=== PATIENT | female | born 1935 | race Caucasian/White ===

== ENCOUNTER 2017-06-13 11:36 | Inpatient (IN) | payer OTHER, BC ==
[2017-06-13] MEDS ORDERED: SODIUM CHLORIDE 1,000 ML IV STA (12:47)
[2017-06-13] MEDS ORDERED: MAGNESIUM SULF 50% (8.12 MEQ/2 ML-1 GM VIAL) IVPB ONE ×2 (13:22→14:00)
[2017-06-13 13:25] LABS: BASO % 0.1 % (0-2.0); HEMATOCRIT 43.7 % (32.4-45.2); HEMOGLOBIN 14.2 GM/dL (10.7-15.3); MCH 28.2 pg (25.7-33.7); MCHC 32.5 g/dl (32.0-36.0); MEAN CELL VOLUME 86.8 fl (80-96); MEAN PLT VOLUME 9.3 fl (7.5-11.1); MONO % 9.1 % (3.8-10.2); NEUT % 80.8 % (42.8-82.8); PLATELET COUNT 203 K/MM3 (134-434); RBC 5.03 M/mm3 (3.60-5.2); RDW 14.4 % (11.6-15.6); WHITE BLOOD COUNT 8.5 K/mm3 (4.0-10.0)
--- NOTE | 2017-06-13 13:26 | PDOC ---
History of Present Illness - General History Source: Patient, Family, Old Records Exam Limitations: No Limitations <Troy Palumbo - Last Filed: 06/13/17 15:41> - General History Source: Patient, Family Exam Limitations: No Limitations - History of Present Illness Initial Comments: 06/13/17 14:16 The patient is a 81 year old female, with a significant past medical history of HTN, hyperlipidemia, DM, and dementia, who presents to the emergency department , s/p fall generalized weakness beginning in March and worsening. As per patients daughter, she was found on the floor this morning. She does not remember how she fell. She reports to have been on the floor for approximately 20 minutes. She denies loss of consciousness. Her daughter reports she becomes winded easily. She went to urgent care in March and was told she has a low heart rate. Patients daughter reports yesterday she became weight, and was hard to move. She reports 4 episodes of nonbloody, nonbilious emesis yesterday. As per daughter, she has bilateral lower extremity edema. She reports a decreased oral intake and has lost approximately 13 lbs since September. She denies recent fevers, chills, headache or dizziness. She denies recent diarrhea or constipation. She denies recent dysuria, frequency, urgency or hematuria. She denies recent chest pain or shortness of breath. Allergies: NKA Past surgical history: None reported. Social history: Nonsmoker. Denies EtOH use and recreational drug use. <Jeff Christianson - Last Filed: 06/13/17 16:11> - General Chief Complaint: Lightheaded Stated Complaint: Weakness Time Seen by Provider: 06/13/17 12:10 Past History - Suicide/Smoking/Psychosocial Hx Smoking History: Never smoked Hx Alcohol Use: No Drug/Substance Use Hx: No <Troy Palumbo - Last Filed: 06/13/17 15:41> <Jeff Christianson - Last Filed: 06/13/17 16:11> - Past Medical History Allergies/Adverse Reactions: Allergies Allergy/AdvReac Type Severity Reaction Status Date / Time No Known Allergies Allergy Verified 06/13/17 12:57 Review of Systems - Review of Systems Able to Perform ROS?: Yes Comments:: 06/13/17 14:17 GENERAL/CONSTITUTIONAL: +Generalized weakness. No fever or chills. HEAD, EYES, EARS, NOSE AND THROAT: No change in vision. No ear pain or discharge. No sore throat. CARDIOVASCULAR: No chest pain or shortness of breath. RESPIRATORY: No cough, wheezing, or hemoptysis. GASTROINTESTINAL: +Emesis. No nausea, diarrhea or constipation. GENITOURINARY: No dysuria, frequency, or change in urination. MUSCULOSKELETAL: No joint or muscle swelling or pain. No neck or back pain. EXTREMITIES: +Bilateral lower extremity edema. SKIN: No rash NEUROLOGIC: No headache, vertigo, loss of consciousness, or change in strength/ sensation. ENDOCRINE: No increased thirst. No abnormal weight change. HEMATOLOGIC/LYMPHATIC: No anemia, easy bleeding, or history of blood clots. ALLERGIC/IMMUNOLOGIC: No hives or skin allergy. All Other Systems: Reviewed and Negative <Jeff Christianson - Last Filed: 06/13/17 16:11> *Physical Exam - Vital Signs Last Vital Signs Temp Pulse Resp BP Pulse Ox 98.8 F 111 H 19 92/61 100 06/13/17 12:08 06/13/17 12:08 06/13/17 12:08 06/13/17 12:08 06/13/17 12:08 <Troy Palumbo - Last Filed: 06/13/17 15:41> - Vital Signs Last Vital Signs Temp Pulse Resp BP Pulse Ox 98.8 F 111 H 19 92/61 100 06/13/17 12:08 06/13/17 12:08 06/13/17 12:08 06/13/17 12:08 06/13/17 12:08 - Physical Exam Comments: 06/13/17 16:05 GENERAL: Awake, alert, and fully oriented, in no acute distress HEAD: No signs of trauma EYES: PERRLA, EOMI, sclera anicteric, conjunctiva clear ENT: +Dry mucous membranes. Auricles normal inspection, hearing grossly normal, nares patent, oropharynx clear without exudates. NECK: Normal ROM, supple, no lymphadenopathy, JVD, or masses LUNGS: Breath sounds equal, clear to auscultation bilaterally. No wheezes, and no crackles HEART: Regular rate and rhythm, normal S1 and S2, no murmurs, rubs or gallops ABDOMEN: Soft, nontender, normoactive bowel sounds. No guarding, no rebound. No masses EXTREMITIES: +Trace bilateral edema of the lower extremities. Normal range of motion. No clubbing or cyanosis. No cords, erythema, or tenderness NEUROLOGICAL: Cranial nerves II through XII grossly intact. Normal speech, normal gait SKIN: Warm, Dry, normal turgor, no rashes or lesions noted. <Jeff Christianson - Last Filed: 06/13/17 16:11> Heart Score/ECG Review #1 ECG reviewed & interpreted by me at: 12:10 06/13/17 13:22 accelerated junctional rhythm 100, LAFB, QTC 688 msec, no std/martha, TWI I, avL, poor R wave progression <Troy Palumbo - Last Filed: 06/13/17 15:41> ED Treatment Course - LABORATORY CBC & Chemistry Diagram: 06/13/17 13:15 06/13/17 13:15 - RADIOLOGY Radiology Studies Ordered: Category Date Time Status HEAD CT WITHOUT CONTRAST [CT] Stat CT Scan 06/13/17 13:10 Ordered CHEST X-RAY PORTABLE* [RAD] Stat Radiology 06/13/17 12:47 Completed <Troy Palumbo - Last Filed: 06/13/17 15:41> - LABORATORY CBC & Chemistry Diagram: 06/13/17 13:15 06/13/17 13:15 - ADDITIONAL ORDERS Additional order review: Laboratory Results 06/13/17 06/13/17 06/13/17 13:41 13:15 13:15 PT with INR INR PTT (Actin FS) VBG pH 7.34 POC VBG pCO2 45.2 POC VBG pO2 27.1 L Mixed VBG HCO3 24.2 Sodium 137 Potassium 4.4 Chloride 100 Carbon Dioxide 24 Anion Gap 13 BUN 51 H Creatinine 2.4 H Creat Clearance w eGFR 19.47 Random Glucose 319 H* Lactic Acid 5.3 H* Calcium 8.3 L Phosphorus 5.4 H Magnesium 1.8 Total Bilirubin 0.3 AST 23 ALT 26 Alkaline Phosphatase 52 Creatine Kinase 45 Troponin I < 0.02 B-Natriuretic Peptide 1375.99 H Total Protein 5.9 L Albumin 3.1 L Lipase 61 L TSH 0.52 06/13/17 13:15 PT with INR 11.60 INR 1.03 PTT (Actin FS) 24.8 L VBG pH POC VBG pCO2 POC VBG pO2 Mixed VBG HCO3 Sodium Potassium Chloride Carbon Dioxide Anion Gap BUN Creatinine Creat Clearance w eGFR Random Glucose Lactic Acid Calcium Phosphorus Magnesium Total Bilirubin AST ALT Alkaline Phosphatase Creatine Kinase Troponin I B-Natriuretic Peptide Total Protein Albumin Lipase TSH 06/13/17 13:15 RBC 5.03 MCV 86.8 MCHC 32.5 RDW 14.4 MPV 9.3 Neutrophils % 80.8 Lymphocytes % 10.0 Monocytes % 9.1 Eosinophils % 0.0 Basophils % 0.1 <Jeff Christianson - Last Filed: 06/13/17 16:11> Medical Decision Making - Medical Decision Making 06/13/17 13:23 A portion of this note was documented by scribe services under my direction. I have reviewed the details of the note, within reason, and agree with the documentation with the following case summary and management plan written by me. Patient treated in the ED. Nursing notes are reviewed and incorporated into the medical decision-making. Vital signs reviewed. Peripheral IV access obtained by the nurse, laboratory studies are drawn and sent, reviewed and interpreted by myself. Vital Signs Temp Pulse Resp BP Pulse Ox 98.8 F 111 H 19 92/61 100 06/13/17 12:08 06/13/17 12:08 06/13/17 12:08 06/13/17 12:08 06/13/17 12:08 81-year-old female with past medical history of hypertension, diabetes, hyperlipidemia presents with generalized weakness. The patient has overall been having failure to thrive since March 2017. She has sustained approximately 10 -15 pound weight loss. Stated that she's been generally more fatigued and weak but without focal symptoms. Noted yesterday that she was having several episodes of nonbloody, nonbilious vomiting and feeling increasingly jelly weak but denies any pain. Denies fevers, chills, cough, diarrhea. This morning, the patient's daughter reported that the patient found her laying on the ground. The patient reported she felt weak and denies hitting her head. Denies headache or neck pain at this time. Denies any focal neurological deficits. The patient did talk to her doctor about these failure thrive symptoms. She is due to follow -up with a neurologist but has not seen them yet. Denies prior cardiac history. Denies rectal bleeding. Denies recent colonoscopy. It is unclear what the etiology of the patient's overall failure to thrive is covering from. However, the patient is likely dehydrated and will require IV fluids. Patient is noted to be somewhat hypotensive and tachycardic, sepsis is within the differential. We'll also rule out rhabdomyolysis. We'll obtain a cardiac, metabolic and infectious workup. We'll also obtain a head CT given that she was found on the ground. Patient is generally weak and unable to ambulate, so we will admit the patient to the hospital for further evaluation. 06/13/17 15:42 CBC, BMP 06/13/17 13:15 06/13/17 13:15 CMP Sodium 137 mmol/L (136-145) 06/13/17 13:15 Potassium 4.4 mmol/L (3.5-5.1) 06/13/17 13:15 Chloride 100 mmol/L (98-107) 06/13/17 13:15 Carbon Dioxide 24 mmol/L (21-32) 06/13/17 13:15 Anion Gap 13 (8-16) 06/13/17 13:15 BUN 51 mg/dL (7-18) H 06/13/17 13:15 Creatinine 2.4 mg/dL (0.55-1.02) H 06/13/17 13:15 Creat Clearance w eGFR 19.47 (>60) 06/13/17 13:15 Random Glucose 319 mg/dL (74-106) H* 06/13/17 13:15 Lactic Acid 5.3 mmol/L (0.0-2.0) H* 06/13/17 13:41 Calcium 8.3 mg/dL (8.5-10.1) L 06/13/17 13:15 Phosphorus 5.4 mg/dL (2.5-4.9) H 06/13/17 13:15 Magnesium 1.8 mg/dL (1.8-2.4) 06/13/17 13:15 Total Bilirubin 0.3 mg/dL (0.2-1.0) 06/13/17 13:15 AST 23 U/L (15-37) 06/13/17 13:15 ALT 26 U/L (12-78) 06/13/17 13:15 Alkaline Phosphatase 52 U/L (45-117) 06/13/17 13:15 Creatine Kinase 45 IU/L (26-192) 06/13/17 13:15 Troponin I < 0.02 ng/ml (0.00-0.05) 06/13/17 13:15 B-Natriuretic Peptide 1375.99 pg/ml (5-450) H 06/13/17 13:15 Total Protein 5.9 g/dl (6.4-8.2) L 06/13/17 13:15 Albumin 3.1 g/dl (3.4-5.0) L 06/13/17 13:15 Lipase 61 U/L (73-393) L 06/13/17 13:15 TSH 0.52 uIU/ml (0.358-3.74) 06/13/17 13:15 CT head reviewed. No acute findings. Chest xray reviewed. NO acute findings. UA pending. Given the prolonged QTC, 2 g of IV magnesium was ordered empirically. Patient noted have an elevated lactic acidosis. Empiric antibiotics medical mice and Zosyn was ordered. Care must be taken to avoid any agents that could prolonged QTC. Could the patient had fall out of bed because of the prolonged QT? However , given the circumstances of acute renal failure, lactic acidosis, we'll need to admit the patient to the hospital. [employer] discussed with the patient and the patient's daughter. [facility] discussed [facility] who accepts the patient for telemetry admission. Case discussed in detail with admitting physician including history, physical exam and ancillary studies. Admitting physician has assumed care for the patient, will follow all pending diagnostics and will complete the evaluation and treatment. <Troy Palumbo - Last Filed: 06/13/17 15:41> - Medical Decision Making 06/13/17 3:30pm Call placed to Dr. Goran Ocampo's answering service, awaiting call back. 4:10pm Second call placed to Dr. Goran Ocampo's answering service, awaiting call back. <Jeff Christianson - Last Filed: 06/13/17 16:11> *DC/Admit/Observation/Transfer - Discharge Dispostion Admit: Yes <Troy Palumbo - Last Filed: 06/13/17 15:41> - Attestations Scribe Attestion: 06/13/17 14:17 Documentation prepared by Jeff Christianson, acting as director medical economics for Troy Palumbo MD. <Jeff Christianson - Last Filed: 06/13/17 16:11> Diagnosis at time of Disposition: Lactic acidosis, Prolonged QT interval Acute renal failure Qualifiers: Acute renal failure type: unspecified Qualified Code(s): N17.9 - Acute kidney failure, unspecified - Discharge Dispostion Condition at time of disposition: Stable - Referrals Referrals: STAFF,NOT ON [Primary Care Provider] -
[2017-06-13 13:34] LABS: VENOUS PC02 45.2 mmHg (38-52); VENOUS PH 7.34 (7.32-7.42); VENOUS PO2 27.1 mmHg (28-48)
[2017-06-13 13:53] LABS: ALBUMIN 3.1 g/dl (3.4-5.0); ANION GAP 13 (8-16); BILIRUBIN,TOTAL 0.3 mg/dL (0.2-1.0); BLOOD UREA NITROGEN 51 mg/dL (7-18); CALCIUM 8.3 mg/dL (8.5-10.1); CHLORIDE 100 mmol/L (98-107); CO2 24 mmol/L (21-32); CREATININE 2.4 mg/dL (0.55-1.02); INR 1.03 (0.82-1.09); LIPASE 61 U/L (73-393); MAGNESIUM 1.8 mg/dL (1.8-2.4); PHOSPHOROUS 5.4 mg/dL (2.5-4.9); POTASSIUM 4.4 mmol/L (3.5-5.1); PROTHROMBIN TIME (PATIENT) 11.6 SEC (9.98-11.88); SGOT/AST 23 U/L (15-37); SGPT/ALT 26 U/L (12-78); SODIUM 137 mmol/L (136-145); TOT PROT 5.9 g/dl (6.4-8.2)
[2017-06-13 13:55] LABS: ACTIVATED PTT 24.8 SECONDS (26.9-34.4); GLUCOSE,RANDOM 319 mg/dL (74-106)
[2017-06-13 14:00] LABS: ALK PHOS 52 U/L (45-117); N-TERMINAL BNP 1375.99 pg/ml (5-450)
[2017-06-13] MEDS ORDERED: VANCOMYCIN 1,000 MG in DEXTROSE 5%-WATER - 250 ML IVPB ONE (14:07)
[2017-06-13] MEDS ORDERED: PIPERACIL/TAZOB 3.375 GM 3.375 GM/50 ML PREMIX IVPB ONE (14:07)
[2017-06-13] MEDS ORDERED: MAGNESIUM SULF 50% (8.12 MEQ/2 ML-1 GM VIAL) ONE ×2 (14:38→14:40)
[2017-06-13] MEDS ORDERED: VANCOMYCIN 1 GRAM (PRE-DOCKED) 1,000 MG/250 ML BAG IVPB ONE (14:39)
[2017-06-13] MEDS ORDERED: SODIUM CHLORIDE 1,000 ML IV SCH (15:45)
[2017-06-13] MEDS: SODIUM CHLORIDE 1,000 ML IV SCH (16:30)
[2017-06-13] MEDS ORDERED: ACETAMINOPHEN 325 MG TABLET (FP) PO ONE (16:52)
--- NOTE | 2017-06-13 16:52 | HP ---
CHIEF COMPLAINT: Weakness, s/p unwitnessed fall. PCP: Dr. Leiva ( [place]) Neurologist Dr. Boswell HISTORY OF PRESENT ILLNESS: The patient is a 81 year old female, with a significant past medical history of HTN, hyperlipidemia, DM, and dementia, who presents to the emergency department complaining of worsening generalized weakness since Mar 2017,s/p fall, found pt on the floor next to the bed by her daughter a Denies loss of consciousness, head trauma or any injuries, non -focal changes. Noted yesterday that she was having several episodes of non-bloody, non-bilious vomiting and feeling increasingly jelly weak but denies any pain. Pt denies recent fevers, chills, headache,dizziness, dysuria, frequency, urgency or hematuria.Pt was seen by urgent care doctor in 2016 due tot weakness,at that time stopped Atenolol due to bradycardia. Referred to neurologist for the weakness,seen by neurologist Dr. Boswell in and w/u in progress. Pt mainly lives with his son in [place] and stay with her daughter on weekends. Daughter reports decreased oral intake and has lost approximately 10-15 pound weight loss since September/2016. Allergies: NKA Past surgical history: None reported. Social history: Nonsmoker. Denies EtOH use and recreational drug use. ER course was notable for: (1)EKG: accelerated junctional rhythm 100, LAFB, QTC 688 msec, no std/martha, TWI I , avL, poor R wave progression (2) Lactic acid 5.3 (3) Bun 51,cre, 2.4, BNP 1375, BS 319 (4) Temp 101 Recent Travel:No PAST MEDICAL HISTORY: HTN, hyperlipidemia, DM, and dementia PAST SURGICAL HISTORY: Bladder lifting Social History: Smoking:No Alcohol:No Drugs: No Family History: Father of MS Mother : HTN Sister of bone cancer at age 50's Allergies No Known Allergies Allergy (Verified 06/13/17 12:57) HOME MEDICATIONS: Reviewed REVIEW OF SYSTEMS CONSTITUTIONAL: Positive fever, generalized weakness, malaise, loss of appetite, weight change Absent: chills, diaphoresis, HEENT: Absent: rhinorrhea, nasal congestion, throat pain, throat swelling, difficulty swallowing, mouth swelling, ear pain, eye pain, visual changes CARDIOVASCULAR: Absent: chest pain, syncope, palpitations, irregular heart rate, lightheadedness , peripheral edema RESPIRATORY: Absent: cough, shortness of breath, dyspnea with exertion, orthopnea, wheezing, stridor, hemoptysis GASTROINTESTINAL:abdominal pain, intermittent nausea,vomiting last night no abdominal distension, diarrhea, no constipation, melena or hematochezia GENITOURINARY: Absent: dysuria, frequency, urgency, hesitancy, hematuria, flank pain, genital pain MUSCULOSKELETAL: Generalized weakness Absent: myalgia, arthralgia, joint swelling, back pain, neck pain SKIN: Absent: rash, itching, pallor HEMATOLOGIC/IMMUNOLOGIC: Absent: easy bleeding, easy bruising, lymphadenopathy, frequent infections ENDOCRINE: Absent: unexplained weight loss, heat intolerance, cold intolerance NEUROLOGIC: Absent: headache, focal weakness or paresthesias, dizziness, unsteady gait, seizure, mental status changes, bladder or bowel incontinence PSYCHIATRIC: Absent: anxiety, depression, suicidal or homicidal ideation, hallucinations. PHYSICAL EXAMINATION Vital Signs - 24 hr 06/13/17 12:08 Temperature 98.8 F Pulse Rate 111 H Respiratory 19 Rate Blood Pressure 92/61 O2 Sat by Pulse 100 Oximetry (%) GENERAL: Awake, alert, and fully oriented, in no acute distress. HEAD: Normal with no signs of trauma. EYES: Pupils equal, round and reactive to light, extraocular movements intact, sclera anicteric, conjunctiva clear. No lid lag. EARS, NOSE, THROAT: Ears normal, nares patent, oropharynx clear without exudates. Moist mucous membranes. NECK: Normal range of motion, supple without lymphadenopathy, JVD, or masses. LUNGS: Breath sounds equal, clear to auscultation bilaterally. No wheezes, and no crackles. No accessory muscle use. HEART: Regular rate and rhythm, normal S1 and S2 without murmur, rub or gallop. ABDOMEN: Soft, diffuse positive tenderness, no pulsatile mass or rebound tenderness,not distended, normoactive bowel sounds, no guarding, no rebound, no masses. No hepatomegaly or splenomegaly. MUSCULOSKELETAL: Normal range of motion at all joints. No bony deformities or tenderness. No CVA tenderness. UPPER EXTREMITIES: 2+ pulses, warm, well-perfused. No cyanosis. No clubbing. No peripheral edema. LOWER EXTREMITIES: 2+ pulses, warm, well-perfused. No calf tenderness. No peripheral edema. NEUROLOGICAL: Cranial nerves II-XII intact. Normal speech. gait not tested PSYCHIATRIC: Cooperative. Good eye contact. Appropriate mood and affect. SKIN: Warm, dry, normal turgor, no rashes or lesions noted, normal capillary refill. Laboratory Results - last 24 hr 06/13/17 06/13/17 06/13/17 13:15 13:15 13:15 WBC 8.5 RBC 5.03 Hgb 14.2 Hct 43.7 MCV 86.8 MCH 28.2 MCHC 32.5 RDW 14.4 Plt Count 203 MPV 9.3 Neutrophils % 80.8 Lymphocytes % 10.0 Monocytes % 9.1 Eosinophils % 0.0 Basophils % 0.1 PT with INR 11.60 INR 1.03 PTT (Actin FS) 24.8 L VBG pH POC VBG pCO2 POC VBG pO2 Mixed VBG HCO3 Sodium 137 Potassium 4.4 Chloride 100 Carbon Dioxide 24 Anion Gap 13 BUN 51 H Creatinine 2.4 H Creat Clearance w eGFR 19.47 Random Glucose 319 H* Lactic Acid Calcium 8.3 L Phosphorus 5.4 H Magnesium 1.8 Total Bilirubin 0.3 AST 23 ALT 26 Alkaline Phosphatase 52 Creatine Kinase 45 Troponin I < 0.02 B-Natriuretic Peptide 1375.99 H Total Protein 5.9 L Albumin 3.1 L Lipase 61 L TSH 0.52 Blood Type Antibody Screen 06/13/17 06/13/17 06/13/17 13:15 13:15 13:15 WBC RBC Hgb Hct MCV MCH MCHC RDW Plt Count MPV Neutrophils % Lymphocytes % Monocytes % Eosinophils % Basophils % PT with INR INR PTT (Actin FS) VBG pH 7.34 POC VBG pCO2 45.2 POC VBG pO2 27.1 L Mixed VBG HCO3 24.2 Sodium Potassium Chloride Carbon Dioxide Anion Gap BUN Creatinine Creat Clearance w eGFR Random Glucose Lactic Acid Calcium Phosphorus Magnesium Total Bilirubin AST ALT Alkaline Phosphatase Creatine Kinase Troponin I B-Natriuretic Peptide Total Protein Albumin Lipase TSH Blood Type O POSITIVE O POSITIVE Antibody Screen Negative 06/13/17 13:41 WBC RBC Hgb Hct MCV MCH MCHC RDW Plt Count MPV Neutrophils % Lymphocytes % Monocytes % Eosinophils % Basophils % PT with INR INR PTT (Actin FS) VBG pH POC VBG pCO2 POC VBG pO2 Mixed VBG HCO3 Sodium Potassium Chloride Carbon Dioxide Anion Gap BUN Creatinine Creat Clearance w eGFR Random Glucose Lactic Acid 5.3 H* Calcium Phosphorus Magnesium Total Bilirubin AST ALT Alkaline Phosphatase Creatine Kinase Troponin I B-Natriuretic Peptide Total Protein Albumin Lipase TSH Blood Type Antibody Screen IMAGING CT Head: Reviewed, no intranasal pathology CxR:No acute pathology BC done, pending ASSESSMENT/PLAN: The patient is a 81 year old female, with a significant past medical history of HTN, hyperlipidemia, DM, and dementia, who presents to the emergency department , s/p unwitnessed fall and worsening of weakness. In ER found to have elevated lactic acid, low BP,ST, Fever and STEPHANIE. * STEPHANIE- pre renal , FTT - cre 2.4 ( unknown baseline) - IV hydration - will hold off on Lisinopril and Metformin -f/u on [employer] in am * sepsis,Lactic acidosis- 5.3, - s/p Bolus IVF - will recheck lactic acid - BC done - will check UA and culture - febrile Temp-101 no leukocytosis, cxr- Clear - s/p Zosyn and vanco - will cont on Zosyn and ID consult requested - will r/o Influenza - will get CT chest, abdomen,pelvis * Prolonged QTC 688 msec - s/p Mg sulfate in ER - no arrhythmias,tele monitoring - will check EKG in am * Weakness, unwitnessed fall - CT head - No acute pathology - PT consult -will check B12, Vit D level - TSH- wnl - IV hydration - will check CPK level * Abdominal pain/ nausea/ Vomiting, no diarrhea - will get CT abdomen - will monitor diet denae * HTN - low BP in ER - s/p IV hydration - will hold off on Lisinopril in view of STEPHANIE - will cotn on Nifedipine with holding parameters - will monitor BP closely - stopped Atenolol in due to bradycardia * DM- BS uncontrolled - will hold off Metformin in view of abnormal cre level - FS monitoring AC& HS - Diabetic diet - will check Hgb Alc - Insulin sliding scale ordered * Abnormal BNP, denies hx of CHF - CxR- No acute pathology - no sob, no signs of fluid overload - Trop Neg x1 * HDL - will cont on home dose Statin * Dementia - wll cont on Namenda * F/E/N IV hydration Diabetic diet Monitor electolyte * VTE prophylaxis : Heparin SQ Visit type - Emergency Visit Emergency Visit: Yes ED Registration Date: 06/13/17 Care time: The patient presented to the Emergency Department on the above date and was hospitalized for further evaluation of their emergent condition. - New Patient This patient is new to me today: Yes Date on this admission: 06/13/17 - Critical Care Critical Care patient: No
[2017-06-13] MEDS ORDERED: ACETAMINOPHEN 325 MG TABLET (FP) ONE ×2 (16:55→17:59)
[2017-06-13] MEDS ORDERED: PIPERACILLIN/TAZOB 2.25 GM/50 ML PREMIX BAG IVPB SCH (18:00)
[2017-06-13] MEDS: PIPERACILLIN/TAZOB 2.25 GM 2.25 GM/50 ML BAG IVPB SCH (20:14)
[2017-06-13] MEDS ORDERED: HEPARIN NA (PORCINE) 5,000 UNITS/ML 1ML VIAL ONE (22:52)
[2017-06-13] MEDS: INSULIN SLIDING SCALE (NOVOLOG) 1 VIAL SQ SCH ×2 (23:14)
[2017-06-13] MEDS: MEMANTINE HCL 10 MG TABLET (FP) PO SCH (23:15)
[2017-06-13] MEDS: ATORVASTATIN CA 10 MG TABLET (FP) PO SCH (23:15)
[2017-06-13] MEDS: HEPARIN NA (PORCINE) 5,000 UNITS/ML 1ML VIAL SQ SCH (23:15)
[2017-06-13] MEDS ORDERED: INSULIN (NOVOLOG) ASPART 100 UNITS/ML 10ML VIAL ONE (23:21)
[2017-06-14] MEDS: PIPERACILLIN/TAZOB 2.25 GM 2.25 GM/50 ML BAG IVPB SCH (02:29)
[2017-06-14] MEDS: INSULIN SLIDING SCALE (NOVOLOG) 1 VIAL SQ SCH ×4 (08:09→22:04)
[2017-06-14] MEDS ORDERED: INSULIN (NOVOLOG) ASPART 100 UNITS/ML 10ML VIAL ONE ×2 (08:10→12:01)
[2017-06-14 08:12] LABS: URINE APPEARANCE CLOUDY; URINE BILIRUBIN NEGATIVE (NEGATIVE); URINE BLOOD NEGATIVE (NEGATIVE); URINE COLOR DKYELLOW; URINE GLUCOSE (UA) 1+ (NEGATIVE); URINE KETONE NEGATIVE (NEGATIVE); URINE LEUK ESTERASE NEGATIVE (NEGATIVE); URINE NITRITE NEGATIVE (NEGATIVE); URINE PROTEIN NEGATIVE (NEGATIVE)
[2017-06-14] MEDS ORDERED: HEPARIN NA (PORCINE) 5,000 UNITS/ML 1ML VIAL ONE (08:17)
[2017-06-14 08:18] LABS: BASO % 0.1 % (0-2.0); HEMATOCRIT 38.1 % (32.4-45.2); HEMOGLOBIN 12.5 GM/dL (10.7-15.3); LYMPH % 10.8 % (8-40); MCH 28.2 pg (25.7-33.7); MCHC 32.7 g/dl (32.0-36.0); MEAN CELL VOLUME 86.1 fl (80-96); MEAN PLT VOLUME 9.5 fl (7.5-11.1); NEUT % 76.1 % (42.8-82.8); PLATELET COUNT 174 K/MM3 (134-434); RBC 4.43 M/mm3 (3.60-5.2); RDW 14.4 % (11.6-15.6); WHITE BLOOD COUNT 8.6 K/mm3 (4.0-10.0)
[2017-06-14] MEDS: HEPARIN NA (PORCINE) 5,000 UNITS/ML 1ML VIAL SQ SCH ×3 (08:20→21:59)
[2017-06-14 08:34] LABS: CHLORIDE 105 mmol/L (98-107); POTASSIUM 3.8 mmol/L (3.5-5.1); SODIUM 140 mmol/L (136-145)
[2017-06-14 08:48] LABS: ANION GAP 13 (8-16); BLOOD UREA NITROGEN 49 mg/dL (7-18); CALCIUM 7.9 mg/dL (8.5-10.1); CO2 22 mmol/L (21-32); CREATININE 1.8 mg/dL (0.55-1.02); GLUCOSE,RANDOM 140 mg/dL (74-106); N-TERMINAL BNP 1942.45 pg/ml (5-450)
[2017-06-14] MEDS ORDERED: NIFEdipine E.R 60 MG TABLET (UD) PO SCH (10:00)
[2017-06-14] MEDS: MEMANTINE HCL 10 MG TABLET (FP) PO SCH ×2 (10:28→22:00)
[2017-06-14] MEDS: NIFEdipine E.R 60 MG TABLET (UD) PO SCH (10:28)
[2017-06-14] MEDS: PARoxetine HCL 20 MG TABLET (FP) PO SCH (10:28)
--- NOTE | 2017-06-14 10:44 | PN ---
Progress Note (short form) - Note Progress Note: ID consult dictated imp/reccd s/p fall ?colitis- isolated fever with lactic acid elevation STEPHANIE dementia- poor historian cultures rocephin/flagyl GI to evaluate continue IVF d/w hospitalist Problem List - Problems (1) Fever Code(s): R50.9 - FEVER, UNSPECIFIED (2) Lactic acidosis Code(s): E87.2 - ACIDOSIS (3) STEPHANIE (acute kidney injury) Code(s): N17.9 - ACUTE KIDNEY FAILURE, UNSPECIFIED (4) Status post fall Code(s): Z91.81 - HISTORY OF FALLING (5) Colitis Code(s): K52.9 - NONINFECTIVE GASTROENTERITIS AND COLITIS, UNSPECIFIED (6) Dementia Code(s): F03.90 - UNSPECIFIED DEMENTIA WITHOUT BEHAVIORAL DISTURBANCE
[2017-06-14] MEDS ORDERED: CEFTRIAXONE 1 GM/50 ML BAG ONE (10:55)
[2017-06-14] MEDS: CEFTRIAXONE 1 G/50 ML PREMIX 50 ML IVPB SCH (10:56)
[2017-06-14] MEDS ORDERED: METRONIDAZOLE 500 MG PREMIXED 500 MG/100 ML MG IVPB ONE (10:56)
--- NOTE | 2017-06-14 11:24 | PN ---
Physical Exam: SUBJECTIVE: Patient seen and examined in ED. She is aware she is at [facility], denies fever, chills. OBJECTIVE: Vital Signs Period Temp Pulse Resp BP Sys/[place] Pulse Ox Last 24 Hr 97.9 F-101 F 89-112 16-20 92-135/52-75 95-100 PE Neuro: alert, awake, cn 2-12intact PULM: CTAB CV: s1 s2 rrr Abd: diffuse abd tenderness to palpation, abd soft + bc Ext: warm, mild non pitting le edema CBCD WBC 8.6 K/mm3 (4.0-10.0) 06/14/17 07:30 RBC 4.43 M/mm3 (3.60-5.2) 06/14/17 07:30 Hgb 12.5 GM/dL (10.7-15.3) D 06/14/17 07:30 Hct 38.1 % (32.4-45.2) 06/14/17 07:30 MCV 86.1 fl (80-96) 06/14/17 07:30 MCHC 32.7 g/dl (32.0-36.0) 06/14/17 07:30 RDW 14.4 % (11.6-15.6) 06/14/17 07:30 Plt Count 174 K/MM3 (134-434) 06/14/17 07:30 MPV 9.5 fl (7.5-11.1) 06/14/17 07:30 CMP Sodium 140 mmol/L (136-145) 06/14/17 07:30 Potassium 3.8 mmol/L (3.5-5.1) 06/14/17 07:30 Chloride 105 mmol/L (98-107) 06/14/17 07:30 Carbon Dioxide 22 mmol/L (21-32) 06/14/17 07:30 Anion Gap 13 (8-16) 06/14/17 07:30 BUN 49 mg/dL (7-18) H 06/14/17 07:30 Creatinine 1.8 mg/dL (0.55-1.02) H 06/14/17 07:30 Creat Clearance w eGFR 19.47 (>60) 06/13/17 13:15 Calcium 7.9 mg/dL (8.5-10.1) L 06/14/17 07:30 Total Bilirubin 0.3 mg/dL (0.2-1.0) 06/13/17 13:15 AST 23 U/L (15-37) 06/13/17 13:15 ALT 26 U/L (12-78) 06/13/17 13:15 Alkaline Phosphatase 52 U/L (45-117) 06/13/17 13:15 Total Protein 5.9 g/dl (6.4-8.2) L 06/13/17 13:15 Albumin 3.1 g/dl (3.4-5.0) L 06/13/17 13:15 06/13/17 06/13/17 06/13/17 13:15 15:54 19:45 Hemoglobin A1c % 6.6 H Lactic Acid 3.1 H* Magnesium 1.8 Creatine Kinase B-Natriuretic Peptide 1375.99 H Lipase 61 L Vitamin B12 944 H Vitamin D 25-Hydroxy TSH 0.52 06/13/17 06/13/17 06/14/17 19:45 19:45 07:30 Hemoglobin A1c % Lactic Acid Magnesium Creatine Kinase 46 B-Natriuretic Peptide 1942.45 H Lipase Vitamin B12 Vitamin D 25-Hydroxy Pending TSH Active Medications Generic Name Dose Route Start Last Admin Trade Name Freq PRN Reason Stop Dose Admin Atorvastatin Calcium 10 mg 06/13/17 22:00 06/13/17 23:15 Lipitor - PO 10 mg HS DOUG Administration Heparin Sodium (Porcine) 5,000 unit 06/13/17 22:00 06/14/17 08:20 Heparin - SQ 5,000 unit TID DOUG Administration Sodium Chloride 1,000 mls @ 75 mls/hr 06/13/17 16:30 06/13/17 16:30 Normal Saline - IV 75 mls/hr ASDIR DOUG Administration CEFTRIAXONE 1 G/50 ML PREMIX 50 mls @ 100 mls/hr 06/14/17 10:45 06/14/17 10: 56 Ceftriaxone 1 Gm-D5w Bag IVPB 100 mls/hr DAILY DOUG Administration Metronidazole 500 mg in 100 mls @ 100 mls/hr 06/14/17 10:45 Flagyl 500mg Premixed Ivpb - IVPB Q8H-IV DOUG Insulin Aspart 1 vial 06/14/17 11:22 Novolog Vial Sliding Scale - SQ ACHS DOUG Protocol Memantine 10 mg 06/13/17 22:00 06/14/17 10:28 Namenda - PO 10 mg BID DOUG Administration Nifedipine 60 mg 06/14/17 10:00 06/14/17 10:28 Procardia Xl - PO 60 mg DAILY DOUG Administration Paroxetine HCl 20 mg 06/14/17 10:00 06/14/17 10:28 Paxil - PO 20 mg DAILY DOUG Administration Microbiology 06/14/17 08:00 Nasopharyngeal Swab Influenza Types A,B Antigen (MARY) - Final 06/14/17 08:00 Nasopharyngeal Swab - Final Assessment: 81 year old female with a pmhx HTN, HLD, DM II, and dementia admitted s/p fall with progressive weakness admitted s/p unwitnessed fall and worsening of weakness. In ER found to have elevated lactic acid, low BP,ST, Fever and STEPHANIE. Plan: 1. Severe sepsis - Obtain lactic acid level now - Continue IVF 75cc/hr - Ceftriaxone/flagyl - Blood, urine cx pending 2. STEPHANIE - Likely pre renal - Improving - Continue fluids - Hold lisinopril 3. Lactic acidosis - Possibly due to metformin vs infectious - Hold metformin 4. Abdominal pain - Possible colitis vs ischemia (however less likely) - Ceftriaxone/flagyl per ID - CTAP noted 5. Rectal impaction - Mineral enema x2 - GI consulted 6. HTN - Stable - Nifedipine 60mg daily - Hold ANCA 7. Prolonged QTC 688 msec - Obtain EKG now 8. Weakness, unwitnessed fall - Work up thus far negative 9. DM II, borderline uncontrolled - Hold PO meds - ISS, BGM ACHS 10. Abnormal BNP, denies hx of CHF - No previous hx of CAD/CHF, father from [place] young - Monitor while receiving IV hydration - Consider ECHO 11. HDL - Statin 12. Dementia - Namenda - Paxil 13. DVT - Heparin sq Visit type - Emergency Visit Emergency Visit: Yes ED Registration Date: 06/13/17 Care time: The patient presented to the Emergency Department on the above date and was hospitalized for further evaluation of their emergent condition. - New Patient This patient is new to me today: Yes Date on this admission: 06/14/17 - Critical Care Critical Care patient: No
--- NOTE | 2017-06-14 11:26 | EKG ---
Test Reason : Blood Pressure : / mmHG Vent. Rate : 100 BPM Atrial Rate : 107 BPM P-R Int : 000 ms QRS Dur : 082 ms QT Int : 534 ms P-R-T Axes : 000 -53 078 degrees QTc Int : 688 ms ACCELERATED JUNCTIONAL RHYTHM LEFT ANTERIOR FASCICULAR BLOCK POSSIBLE ANTERIOR INFARCT , AGE UNDETERMINED NONSPECIFIC ST AND T WAVE ABNORMALITY PROLONGED QT ABNORMAL ECG NO PREVIOUS ECGS AVAILABLE Confirmed by YASMIN SIM MD ([id number]) on 06/14/2017 11:25:38 AM Referred By: Confirmed By:YASMIN SIM MD
[2017-06-14] MEDS: METRONIDAZOLE 500 MG PREMIXED 500 MG/100 ML MG IVPB SCH ×2 (11:34→17:45)
[2017-06-14] MEDS ORDERED: MINERAL OIL ENEMA 133 ML ENEMA PR ONE ×2 (12:51→12:52)
[2017-06-14 15:22] VITALS: BMI 21.6
[2017-06-14] MEDS: SODIUM CHLORIDE 1,000 ML IV SCH (16:45)
--- NOTE | 2017-06-14 17:34 | CONS ---
DATE OF CONSULTATION: 06/14/2017 REQUESTED BY: Hospitalist service. This is a 81-year-old female who was brought to the ER by her daughter, when she was found on the floor. They do not know how she fell. She apparently resides in the [place]. Her PCP is a Dr. Hamilton. She has mild dementia. Currently she thinks she is in her 90s and that she is at a restaurant. She has no complaints whatsoever. She has no chest pain, abdominal pain, nausea, vomiting or diarrhea, fevers or chills. She does recall that she has had weight loss; she is unclear how much. Per the chart, she has had apparently 4 episodes of vomiting yesterday and she has been eating poorly and has lost 13 pounds. She has been seen by a neurologist recently and has a primary doctor in the [place]. She stays with her son in the [place] and stays with her daughter on the weekends. In the emergency room, she was noted to have a temperature of 101, normal white count, BUN of 51, with a creatinine of 2.4 and a lactic acid of 5.3. Her past medical history is notable for hypertension, hyperlipidemia, diabetes, and dementia; surgical history for a bladder lift. SOCIAL HISTORY: She lives in the [place] and has 2 children. She spends part of her time with her son and part of her time with her daughter. There is no history of any recent travel. Review of systems is notable for poor oral intake and generalized fatigue. Family history is notable for heart disease, hypertension. She has no known drug allergies. Her medications at home include nifedipine, metformin, lisinopril, rivastigmine, Paxil, simvastatin, and Namenda. Her review of systems is essentially unremarkable except for generalized weakness. PHYSICAL EXAMINATION: Vital Signs: Her T-max is 101. Current temperature is 98.7. Pulse of 89. Blood pressure 126/75. Respiratory rate 16. She is saturating 94% on room air. HEENT: She is normocephalic. Her eyes are anicteric. She has no thrush or pharyngitis. Neck: Supple. She has no palpable adenopathy. Lungs: Clear to auscultation. Heart: Regular rate and rhythm. Abdomen: Firm. She has bilateral lower abdominal discomfort to palpation. Extremities: Trace edema bilaterally. White count is 8.6, hemoglobin 12.5, platelets are 174, INR is 1, BUN 49, creatinine 1.8. Lactic acid was 5.3 on admission, repeated 3.1. Liver function tests are normal. Urinalysis is negative. Cultures are pending. Influenza screen is negative. Chest x-ray is negative. Head CT is notable for generalized volume loss, age appropriate. Non-contrast study of chest shows some atelectasis, no focal lung consolidation. Abdomen shows transverse and descending colitis with paracolonic edema. She has a mildly calcified gallbladder wall and a lobulated thyroid gland. In summary, this is an elderly woman admitted from home status post fall, with question of colitis on CAT scan, isolated fever, with lactic acid elevation, acute kidney injury, and dementia. Would obtain cultures. Has not recently received antibiotics. She received vancomycin and Zosyn in the emergency room. Would switch her to Rocephin and Flagyl to treat her for colitis and would consider GI evaluation. All of the above was discussed with the hospitalist. Would continue IV fluids at this time. Further recommendations to follow. GIGI HESS M.D. [id number]
--- NOTE | 2017-06-14 19:33 | CONS ---
INFECTIOUS DISEASE CONSULTATION DATE OF CONSULTATION: 06/14/2017 REQUESTING PHYSICIAN: Hospitalist service. HISTORY OF PRESENT ILLNESS: This is a 81-year-old woman who presented to the emergency room on the after her daughter found her on the floor in her apartment. She was next to the bed. There was no loss of consciousness, head trauma, or any injuries. She had apparently been having several episodes of vomiting. The patient has some mild dementia and is not a very good historian. She was seen in the emergency room. She was found to have a fever of 101, a normal white count, a lactic acid of 5.3, BUN of 51, creatinine of 2.4, and she was admitted for further evaluation. She was given a dose of vancomycin and Zosyn. She apparently has had some weight loss per her daughter. She lives with her son during the week and her daughter on weekends. On questioning the patient, she denies any chest pain, abdominal pain, nausea, vomiting, diarrhea, or dysuria. She denies vomiting which apparently she had at home. PAST MEDICAL HISTORY: Notable for mild dementia, hypertension, diabetes, and hyperlipidemia. SURGICAL HISTORY: Notable for a bladder lift. SOCIAL HISTORY: She does not smoke. She, as stated before, lives both with her son and her daughter. REVIEW OF SYSTEMS: Essentially normal. PHYSICAL EXAMINATION: General: She is awake and alert. A pleasant woman in no acute distress. Vital Signs: She has had no further fever. T-max was 101 in the emergency room. Temperature was 98.7, pulse of 89, blood pressure 126/75, respiratory rate 16, saturating 95% on room air. HEENT: She is normocephalic. Eyes are anicteric. Neck: Supple. Lungs: Clear to auscultation. Heart: Regular rate and rhythm. Abdomen: Soft. She has bilateral lower quadrant tenderness on exam. Extremities: Without edema. LABORATORY DATA: White count is 8.6, hemoglobin 12.5, platelets are 174. BUN is 49 and creatinine 1.8. Lactic acid is on admission of 5.3; then, on repeat was 3.1. Urinalysis is negative. CT scan findings with question of colitis and retained stool. In summary, this is a 81-year-old woman with mild dementia, admitted status post fall with isolated fever, lactic acid elevation, question of colitis on CAT scan with abdominal discomfort and acute kidney injury with elevated creatinine. I would obtain cultures, treat her with ceftriaxone and Flagyl to cover for colitis. GI evaluation with continued IV hydration. All of the above was discussed with the hospitalist. GIGI HESS M.D. [id number]
[2017-06-14] MEDS: ATORVASTATIN CA 10 MG TABLET (FP) PO SCH (22:00)
[2017-06-15] MEDS: METRONIDAZOLE 500 MG PREMIXED 500 MG/100 ML MG IVPB SCH ×3 (01:18→17:54)
[2017-06-15] MEDS: HEPARIN NA (PORCINE) 5,000 UNITS/ML 1ML VIAL SQ SCH ×3 (06:01→21:14)
[2017-06-15] MEDS: INSULIN SLIDING SCALE (NOVOLOG) 1 VIAL SQ SCH ×4 (06:03→21:21)
[2017-06-15] MEDS: SODIUM CHLORIDE 1,000 ML IV SCH ×2 (08:30→20:13)
[2017-06-15 08:37] LABS: ALBUMIN 2.1 g/dl (3.4-5.0); ALK PHOS 46 U/L (45-117); ANION GAP 13 (8-16); BILIRUBIN,TOTAL 0.5 mg/dL (0.2-1.0); BLOOD UREA NITROGEN 47 mg/dL (7-18); CALCIUM 7.6 mg/dL (8.5-10.1); CHLORIDE 109 mmol/L (98-107); CO2 21 mmol/L (21-32); CREATININE 1.6 mg/dL (0.55-1.02); GLUCOSE,RANDOM 141 mg/dL (74-106); SGOT/AST 26 U/L (15-37); SGPT/ALT 20 U/L (12-78); SODIUM 143 mmol/L (136-145); TOT PROT 4.7 g/dl (6.4-8.2)
--- NOTE | 2017-06-15 09:01 | CON.GI ---
Consult Consult Specialty:: GI Reason for Consultation:: Stool impaction - Alcohol/Substance Use Hx Alcohol Use: No - Smoking History Smoking history: Never smoked Home Medications - Allergies Allergies/Adverse Reactions: Allergies Allergy/AdvReac Type Severity Reaction Status Date / Time No Known Allergies Allergy Verified 06/13/17 12:57 - Home Medications Home Medications: Ambulatory Orders Lisinopril [Prinivil] 20 mg PO DAILY 06/13/17 Memantine HCl [Namenda -] 10 mg PO BID 06/13/17 Metformin HCl [Metformin HCl ER] 500 mg PO DAILY 06/13/17 Nifedipine [Procardia Xl] 60 mg PO DAILY 06/13/17 Paroxetine HCl 20 mg PO DAILY 06/13/17 Rivastigmine 13.3 mg SUBD DAILY 06/13/17 Simvastatin 20 mg PO HS 06/13/17 Physical Exam-GI Vital Signs: Vital Signs Temperature 97.6 F 06/15/17 06:00 Pulse Rate 90 06/15/17 06:00 Respiratory Rate 18 06/15/17 06:00 Blood Pressure 107/56 06/15/17 06:00 O2 Sat by Pulse Oximetry (%) 93 L 06/14/17 21:00 Labs: CBC, BMP 06/14/17 07:30 06/15/17 06:10 INR, PTT INR 1.03 (0.82-1.09) 06/13/17 13:15
[2017-06-15 09:32] LABS: POTASSIUM 2.9 mmol/L (3.5-5.1)
--- NOTE | 2017-06-15 09:35 | CON.GI ---
Consult Consult Specialty:: GI - History of Present Illness History of Present Illness: Chart reviewed. Events as documented by ED noted. A 81 yof admitted s/p fall, STEPHANIE, abdominal pain, nausea and vomiting. During the work up noted to have transverse and descending colon changes on CT w/o contrast suggestive of colitis. Also noted to have large amount of stool in recto-sigmoid. Normal Hgb, WBC. Lactic acid 2.3. No melena, hematochezia, hematemesis. As per nurse on the floor, the patient has been having bowel movements after an enema was given. At the time of this encounter, the patient appears comfortable, not in distress , or discomfort. - History Source History Provided By: Medical Record Limitations to Obtaining History: Clinical Condition - Alcohol/Substance Use Hx Alcohol Use: No - Smoking History Smoking history: Never smoked Home Medications - Allergies Allergies/Adverse Reactions: Allergies Allergy/AdvReac Type Severity Reaction Status Date / Time No Known Allergies Allergy Verified 06/13/17 12:57 - Home Medications Home Medications: Ambulatory Orders Lisinopril [Prinivil] 20 mg PO DAILY 06/13/17 Memantine HCl [Namenda -] 10 mg PO BID 06/13/17 Metformin HCl [Metformin HCl ER] 500 mg PO DAILY 06/13/17 Nifedipine [Procardia Xl] 60 mg PO DAILY 06/13/17 Paroxetine HCl 20 mg PO DAILY 06/13/17 Rivastigmine 13.3 mg SUBD DAILY 06/13/17 Simvastatin 20 mg PO HS 06/13/17 Family Disease History - Family Disease History Family History: Unremarkable (non-contributory) Review of Systems Findings/Remarks: as per HPI, H&P Physical Exam-GI Vital Signs: Vital Signs Temperature 97.6 F 06/15/17 06:00 Pulse Rate 90 06/15/17 06:00 Respiratory Rate 18 06/15/17 06:00 Blood Pressure 107/56 06/15/17 06:00 O2 Sat by Pulse Oximetry (%) 93 L 06/14/17 21:00 Constitutional: Yes: Well Nourished, No Distress, Calm Eyes: Yes: Conjunctiva Clear HENT: Yes: Atraumatic Neck: Yes: Supple Gastrointestinal Inspection: No: Distention ...Palpate: Yes: Soft. No: Firm/Rigid, Guarding, Tenderness Labs: CBC, BMP 06/14/17 07:30 06/15/17 06:10 INR, PTT INR 1.03 (0.82-1.09) 06/13/17 13:15 Laboratory Tests 06/13/17 06/13/17 06/13/17 13:15 13:15 13:15 WBC 8.5 RBC 5.03 Hgb 14.2 Hct 43.7 MCV 86.8 MCH 28.2 MCHC 32.5 RDW 14.4 Plt Count 203 MPV 9.3 Neutrophils % 80.8 Lymphocytes % 10.0 Monocytes % 9.1 Eosinophils % 0.0 Basophils % 0.1 PT with INR 11.60 INR 1.03 PTT (Actin FS) 24.8 L VBG pH POC VBG pCO2 POC VBG pO2 Mixed VBG HCO3 Sodium 137 Potassium 4.4 Chloride 100 Carbon Dioxide 24 Anion Gap 13 BUN 51 H Creatinine 2.4 H Creat Clearance w eGFR 19.47 POC Glucometer Random Glucose 319 H* Hemoglobin A1c % Lactic Acid Calcium 8.3 L Phosphorus 5.4 H Magnesium 1.8 Total Bilirubin 0.3 AST 23 ALT 26 Alkaline Phosphatase 52 Creatine Kinase 45 Troponin I < 0.02 B-Natriuretic Peptide 1375.99 H Total Protein 5.9 L Albumin 3.1 L Lipase 61 L Vitamin B12 944 H Vitamin D 25-Hydroxy TSH 0.52 Urine Color Urine Appearance Urine pH Ur Specific [place] Urine Protein Urine Glucose (UA) Urine Ketones Urine Blood Urine Nitrite Urine Bilirubin Urine Urobilinogen Ur Leukocyte Esterase Blood Type Antibody Screen 06/13/17 06/13/17 06/13/17 13:15 13:15 13:15 WBC RBC Hgb Hct MCV MCH MCHC RDW Plt Count MPV Neutrophils % Lymphocytes % Monocytes % Eosinophils % Basophils % PT with INR INR PTT (Actin FS) VBG pH 7.34 POC VBG pCO2 45.2 POC VBG pO2 27.1 L Mixed VBG HCO3 24.2 Sodium Potassium Chloride Carbon Dioxide Anion Gap BUN Creatinine Creat Clearance w eGFR POC Glucometer Random Glucose Hemoglobin A1c % Lactic Acid Calcium Phosphorus Magnesium Total Bilirubin AST ALT Alkaline Phosphatase Creatine Kinase Troponin I B-Natriuretic Peptide Total Protein Albumin Lipase Vitamin B12 Vitamin D 25-Hydroxy TSH Urine Color Urine Appearance Urine pH Ur Specific [place] Urine Protein Urine Glucose (UA) Urine Ketones Urine Blood Urine Nitrite Urine Bilirubin Urine Urobilinogen Ur Leukocyte Esterase Blood Type O POSITIVE O POSITIVE Antibody Screen Negative 06/13/17 06/13/17 06/13/17 13:41 15:54 19:45 WBC RBC Hgb Hct MCV MCH MCHC RDW Plt Count MPV Neutrophils % Lymphocytes % Monocytes % Eosinophils % Basophils % PT with INR INR PTT (Actin FS) VBG pH POC VBG pCO2 POC VBG pO2 Mixed VBG HCO3 Sodium Potassium Chloride Carbon Dioxide Anion Gap BUN Creatinine Creat Clearance w eGFR POC Glucometer Random Glucose Hemoglobin A1c % 6.6 H Lactic Acid 5.3 H* 3.1 H* Calcium Phosphorus Magnesium Total Bilirubin AST ALT Alkaline Phosphatase Creatine Kinase Troponin I B-Natriuretic Peptide Total Protein Albumin Lipase Vitamin B12 Vitamin D 25-Hydroxy TSH Urine Color Urine Appearance Urine pH Ur Specific [place] Urine Protein Urine Glucose (UA) Urine Ketones Urine Blood Urine Nitrite Urine Bilirubin Urine Urobilinogen Ur Leukocyte Esterase Blood Type Antibody Screen 06/13/17 06/13/17 06/13/17 19:45 19:45 23:12 WBC RBC Hgb Hct MCV MCH MCHC RDW Plt Count MPV Neutrophils % Lymphocytes % Monocytes % Eosinophils % Basophils % PT with INR INR PTT (Actin FS) VBG pH POC VBG pCO2 POC VBG pO2 Mixed VBG HCO3 Sodium Potassium Chloride Carbon Dioxide Anion Gap BUN Creatinine Creat Clearance w eGFR POC Glucometer 254.89487 Random Glucose Hemoglobin A1c % Lactic Acid Calcium Phosphorus Magnesium Total Bilirubin AST ALT Alkaline Phosphatase Creatine Kinase 46 Troponin I B-Natriuretic Peptide Total Protein Albumin Lipase Vitamin B12 Vitamin D 25-Hydroxy 24.2 L TSH Urine Color Urine Appearance Urine pH Ur Specific [place] Urine Protein Urine Glucose (UA) Urine Ketones Urine Blood Urine Nitrite Urine Bilirubin Urine Urobilinogen Ur Leukocyte Esterase Blood Type Antibody Screen 06/14/17 06/14/17 06/14/17 07:10 07:30 07:30 WBC 8.6 RBC 4.43 Hgb 12.5 D Hct 38.1 MCV 86.1 MCH 28.2 MCHC 32.7 RDW 14.4 Plt Count 174 MPV 9.5 Neutrophils % 76.1 Lymphocytes % 10.8 Monocytes % 13.0 H Eosinophils % 0.0 Basophils % 0.1 PT with INR INR PTT (Actin FS) VBG pH POC VBG pCO2 POC VBG pO2 Mixed VBG HCO3 Sodium 140 Potassium 3.8 Chloride 105 Carbon Dioxide 22 Anion Gap 13 BUN 49 H Creatinine 1.8 H Creat Clearance w eGFR POC Glucometer Random Glucose 140 H Hemoglobin A1c % Lactic Acid Calcium 7.9 L Phosphorus Magnesium Total Bilirubin AST ALT Alkaline Phosphatase Creatine Kinase Troponin I B-Natriuretic Peptide 1942.45 H Total Protein Albumin Lipase Vitamin B12 Vitamin D 25-Hydroxy TSH Urine Color Dkyellow Urine Appearance Cloudy Urine pH 5.0 Ur Specific [place] 1.014 Urine Protein Negative Urine Glucose (UA) 1+ H Urine Ketones Negative Urine Blood Negative Urine Nitrite Negative Urine Bilirubin Negative Urine Urobilinogen 2.0 H Ur Leukocyte Esterase Negative Blood Type Antibody Screen 06/14/17 06/14/17 06/14/17 08:04 11:18 11:57 WBC RBC Hgb Hct MCV MCH MCHC RDW Plt Count MPV Neutrophils % Lymphocytes % Monocytes % Eosinophils % Basophils % PT with INR INR PTT (Actin FS) VBG pH POC VBG pCO2 POC VBG pO2 Mixed VBG HCO3 Sodium Potassium Chloride Carbon Dioxide Anion Gap BUN Creatinine Creat Clearance w eGFR POC Glucometer [phone] Random Glucose Hemoglobin A1c % Lactic Acid 2.8 H* Calcium Phosphorus Magnesium Total Bilirubin AST ALT Alkaline Phosphatase Creatine Kinase Troponin I B-Natriuretic Peptide Total Protein Albumin Lipase Vitamin B12 Vitamin D 25-Hydroxy TSH Urine Color Urine Appearance Urine pH Ur Specific [place] Urine Protein Urine Glucose (UA) Urine Ketones Urine Blood Urine Nitrite Urine Bilirubin Urine Urobilinogen Ur Leukocyte Esterase Blood Type Antibody Screen 06/14/17 06/14/17 06/14/17 17:33 18:30 22:02 WBC RBC Hgb Hct MCV MCH MCHC RDW Plt Count MPV Neutrophils % Lymphocytes % Monocytes % Eosinophils % Basophils % PT with INR INR PTT (Actin FS) VBG pH POC VBG pCO2 POC VBG pO2 Mixed VBG HCO3 Sodium Potassium Chloride Carbon Dioxide Anion Gap BUN Creatinine Creat Clearance w eGFR POC Glucometer 175 168 Random Glucose Hemoglobin A1c % Lactic Acid 1.5 Calcium Phosphorus Magnesium Total Bilirubin AST ALT Alkaline Phosphatase Creatine Kinase Troponin I B-Natriuretic Peptide Total Protein Albumin Lipase Vitamin B12 Vitamin D 25-Hydroxy TSH Urine Color Urine Appearance Urine pH Ur Specific [place] Urine Protein Urine Glucose (UA) Urine Ketones Urine Blood Urine Nitrite Urine Bilirubin Urine Urobilinogen Ur Leukocyte Esterase Blood Type Antibody Screen 06/15/17 06/15/17 06/15/17 05:51 06:10 06:10 WBC RBC Hgb Hct MCV MCH MCHC RDW Plt Count MPV Neutrophils % Lymphocytes % Monocytes % Eosinophils % Basophils % PT with INR INR PTT (Actin FS) VBG pH POC VBG pCO2 POC VBG pO2 Mixed VBG HCO3 Sodium 143 Potassium 2.9 L* Chloride 109 H Carbon Dioxide 21 Anion Gap 13 BUN 47 H Creatinine 1.6 H Creat Clearance w eGFR 31.09 POC Glucometer 142 Random Glucose 141 H Hemoglobin A1c % Lactic Acid 1.0 Calcium 7.6 L Phosphorus Magnesium Total Bilirubin 0.5 D AST 26 ALT 20 D Alkaline Phosphatase 46 Creatine Kinase Troponin I B-Natriuretic Peptide Total Protein 4.7 L D Albumin 2.1 L D Lipase Vitamin B12 Vitamin D 25-Hydroxy TSH Urine Color Urine Appearance Urine pH Ur Specific [place] Urine Protein Urine Glucose (UA) Urine Ketones Urine Blood Urine Nitrite Urine Bilirubin Urine Urobilinogen Ur Leukocyte Esterase Blood Type Antibody Screen Imaging - Results Cat Scan: Report Reviewed Problem List - Problems (1) Colitis Code(s): K52.9 - NONINFECTIVE GASTROENTERITIS AND COLITIS, UNSPECIFIED Assessment/Plan Stool impaction was resolved with an enema. Ischemia, vs infectious colitis. IBD is less likely Follow stool cultures, c. diff Adequate hydration Abx to cover colonic padmaja Close monitoring and frequent abdominal exams. If no improvement in 2-3 days, will discuss colonsocopy.
[2017-06-15] MEDS ORDERED: POTASSIUM CHLORIDE ORAL LIQUID 20 MEQ/15 ML PO ONE ×2 (10:00→13:00)
[2017-06-15] MEDS: MEMANTINE HCL 10 MG TABLET (FP) PO SCH ×2 (10:01→21:14)
[2017-06-15] MEDS: NIFEdipine E.R 60 MG TABLET (UD) PO SCH (10:02)
[2017-06-15] MEDS: PARoxetine HCL 20 MG TABLET (FP) PO SCH (10:02)
[2017-06-15] MEDS ORDERED: INSULIN (NOVOLOG) ASPART 100 UNITS/ML 10ML VIAL ONE ×2 (11:36→20:32)
[2017-06-15] MEDS: CEFTRIAXONE 1 G/50 ML PREMIX 50 ML IVPB SCH (11:38)
--- NOTE | 2017-06-15 12:37 | PN ---
Progress Note (short form) - Note Progress Note: no discomfort no complaints eating lunch +BM Vital Signs Period Temp Pulse Resp BP Sys/[place] Pulse Ox Last 24 Hr 97.6 F-99.3 F 90-107 18-22 102-138/47-58 93-96 cor-rrr llungs clear abd soft,nt ext no edema CBC, BMP 06/14/17 07:30 06/15/17 06:10 Microbiology 06/14/17 07:10 Urine - Urine Clean Catch Urine Culture - Final NO GROWTH OBTAINED 06/13/17 13:19 Blood - Peripheral Venous Blood Culture - Preliminary NO GROWTH OBTAINED AFTER 24 HOURS, INCUBATION TO CONTINUE FOR 4 DAYS. 06/13/17 12:47 Blood - Peripheral Venous Blood Culture - Preliminary NO GROWTH OBTAINED AFTER 24 HOURS, INCUBATION TO CONTINUE FOR 4 DAYS. 06/14/17 08:00 Nasopharyngeal Swab Influenza Types A,B Antigen (MARY) - Final 06/14/17 08:00 Nasopharyngeal Swab - Final imp/reccd s/p fall ?colitis- isolated fever with lactic acid elevation STEPHANIE dementia- poor historian cultures rocephin/flagyl constipation and abdomnal pain resolved renal function improving Problem List - Problems (1) Fever Code(s): R50.9 - FEVER, UNSPECIFIED (2) Lactic acidosis Code(s): E87.2 - ACIDOSIS (3) STEPHANIE (acute kidney injury) Code(s): N17.9 - ACUTE KIDNEY FAILURE, UNSPECIFIED (4) Status post fall Code(s): Z91.81 - HISTORY OF FALLING (5) Colitis Code(s): K52.9 - NONINFECTIVE GASTROENTERITIS AND COLITIS, UNSPECIFIED (6) Dementia Code(s): F03.90 - UNSPECIFIED DEMENTIA WITHOUT BEHAVIORAL DISTURBANCE
[2017-06-15] MEDS: POLYETHYLENE GLYCOL 3350 119 GM BTL PO SCH ×2 (14:42→21:15)
--- NOTE | 2017-06-15 15:17 | PN ---
Physical Exam: SUBJECTIVE: Patient seen and examined. She feels better, no abd pain at this time. + BM with enema OBJECTIVE: Vital Signs Period Temp Pulse Resp BP Sys/[place] Pulse Ox Last 24 Hr 97.6 F-99.3 F 90-98 -18 103-138/47-63 93 PE Neuro: alert, awake, cn 2-12intact PULM: CTAB CV: s1 s2 rrr Abd: s nt nd +bs Ext: warm, mild non pitting le edema Laboratory Results - last 24 hr 06/13/17 06/14/17 06/14/17 19:45 17:33 18:30 Sodium Potassium Chloride Carbon Dioxide Anion Gap BUN Creatinine Creat Clearance w eGFR POC Glucometer 175 Random Glucose Lactic Acid 1.5 Calcium Total Bilirubin AST ALT Alkaline Phosphatase Total Protein Albumin Vitamin D 25-Hydroxy 24.2 L 06/14/17 06/15/17 06/15/17 22:02 05:51 06:10 Sodium Potassium Chloride Carbon Dioxide Anion Gap BUN Creatinine Creat Clearance w eGFR POC Glucometer 168 142 Random Glucose Lactic Acid 1.0 Calcium Total Bilirubin AST ALT Alkaline Phosphatase Total Protein Albumin Vitamin D 25-Hydroxy 06/15/17 06/15/17 06:10 11:25 Sodium 143 Potassium 2.9 L* Chloride 109 H Carbon Dioxide 21 Anion Gap 13 BUN 47 H Creatinine 1.6 H Creat Clearance w eGFR 31.09 POC Glucometer 202 Random Glucose 141 H Lactic Acid Calcium 7.6 L Total Bilirubin 0.5 D AST 26 ALT 20 D Alkaline Phosphatase 46 Total Protein 4.7 L D Albumin 2.1 L D Vitamin D 25-Hydroxy Active Medications Generic Name Dose Route Start Last Admin Trade Name Kylie PRN Reason Stop Dose Admin Atorvastatin Calcium 10 mg 06/13/17 22:00 06/14/17 22:00 Lipitor - PO 10 mg HS DOUG Administration Heparin Sodium (Porcine) 5,000 unit 06/13/17 22:00 06/15/17 14:40 Heparin - SQ 5,000 unit TID DOUG Administration Sodium Chloride 1,000 mls @ 75 mls/hr 06/13/17 16:30 06/15/17 08:30 Normal Saline - IV 75 mls/hr ASDIR DOUG Administration CEFTRIAXONE 1 G/50 ML PREMIX 50 mls @ 100 mls/hr 06/14/17 10:45 06/15/17 11: 38 Ceftriaxone 1 Gm-D5w Bag IVPB 100 mls/hr DAILY DOUG Administration Metronidazole 500 mg in 100 mls @ 100 mls/hr 06/14/17 10:45 06/15/17 10:01 Flagyl 500mg Premixed Ivpb - IVPB 100 mls/hr Q8H-IV DOUG Administration Insulin Aspart 1 vial 06/14/17 11:22 06/15/17 11:39 Novolog Vial Sliding Scale - SQ 4 units ACHS DOUG Administration Protocol Memantine 10 mg 06/13/17 22:00 06/15/17 10:01 Namenda - PO 10 mg BID DOUG Administration Nifedipine 60 mg 06/14/17 10:00 06/15/17 10:02 Procardia Xl - PO 60 mg DAILY DOUG Administration Paroxetine HCl 20 mg 06/14/17 10:00 06/15/17 10:02 Paxil - PO 20 mg DAILY DOUG Administration Polyethylene Glycol 17 gm 06/15/17 14:00 06/15/17 14:42 Miralax (For Daily Use) - PO 17 gm TID ODUG Administration Microbiology 06/13/17 13:19 Blood - Peripheral Venous Blood Culture - Preliminary NO GROWTH OBTAINED AFTER 48 HOURS, INCUBATION TO CONTINUE FOR 3 DAYS. 06/13/17 12:47 Blood - Peripheral Venous Blood Culture - Preliminary NO GROWTH OBTAINED AFTER 48 HOURS, INCUBATION TO CONTINUE FOR 3 DAYS. 06/14/17 07:10 Urine - Urine Clean Catch Urine Culture - Final NO GROWTH OBTAINED 06/14/17 08:00 Nasopharyngeal Swab Influenza Types A,B Antigen (MARY) - Final 06/14/17 08:00 Nasopharyngeal Swab - Final Assessment: 81 year old female with a pmhx HTN, HLD, DM II, and dementia admitted s/p fall with progressive weakness admitted s/p unwitnessed fall and worsening of weakness. In ER found to have elevated lactic acid, low BP,ST, Fever and STEPHANIE. Plan: 1. Severe sepsis - Resolving - Continue IVF 75cc/hr - Ceftriaxone/flagyl 2. STEPHANIE - Likely pre renal - Improving - Continue fluids - Hold lisinopril 3. Lactic acidosis - Resolved - Hold metformin 4. Abdominal pain - Possible colitis vs ischemia (however less likely) - Ceftriaxone/flagyl per ID - Obtain stool cultures, c diff - Obtain abd xray in AM 5. Rectal impaction - Having bowel movements - Continue miralax TID 6. HTN - Stable - Nifedipine 60mg daily - Hold ANCA 7. Prolonged QTC 688 msec - Repeat EKG: NSR 8. Weakness, unwitnessed fall - Work up thus far negative - Will need PT, rehab 9. DM II, borderline uncontrolled - Hold PO meds - ISS, BGM ACHS 10. Abnormal BNP, denies hx of CHF - No previous hx of CAD/CHF, father from [place] young - Monitor while receiving IV hydration - ECHO ordered 11. HDL - Statin 12. Dementia - Namenda - Paxil 13. DVT - Heparin sq Visit type - Emergency Visit Emergency Visit: Yes ED Registration Date: 06/14/17 Care time: The patient presented to the Emergency Department on the above date and was hospitalized for further evaluation of their emergent condition. - New Patient This patient is new to me today: No - Critical Care Critical Care patient: No
[2017-06-15] MEDS: ATORVASTATIN CA 10 MG TABLET (FP) PO SCH (21:14)
[2017-06-16] MEDS: SODIUM CHLORIDE 1,000 ML IV SCH (01:24)
[2017-06-16] MEDS: METRONIDAZOLE 500 MG PREMIXED 500 MG/100 ML MG IVPB SCH ×2 (01:24→10:09)
[2017-06-16] MEDS: HEPARIN NA (PORCINE) 5,000 UNITS/ML 1ML VIAL SQ SCH ×3 (05:36→21:03)
[2017-06-16] MEDS: POLYETHYLENE GLYCOL 3350 119 GM BTL PO SCH ×2 (05:36→14:45)
[2017-06-16] MEDS: INSULIN SLIDING SCALE (NOVOLOG) 1 VIAL SQ SCH ×4 (06:09→21:05)
[2017-06-16 08:15] LABS: BASO % 0.1 % (0-2.0); EOS % 0.2 % (0-4.5); HEMATOCRIT 32.2 % (32.4-45.2); HEMOGLOBIN 10.7 GM/dL (10.7-15.3); LYMPH % 15.2 % (8-40); MCH 28.4 pg (25.7-33.7); MCHC 33.1 g/dl (32.0-36.0); MEAN CELL VOLUME 85.7 fl (80-96); MEAN PLT VOLUME 8.8 fl (7.5-11.1); MONO % 9.3 % (3.8-10.2); NEUT % 75.2 % (42.8-82.8); PLATELET COUNT 162 K/MM3 (134-434); RBC 3.76 M/mm3 (3.60-5.2); WHITE BLOOD COUNT 6.8 K/mm3 (4.0-10.0)
[2017-06-16 08:50] LABS: ANION GAP 9 (8-16); BLOOD UREA NITROGEN 26 mg/dL (7-18); CALCIUM 7.6 mg/dL (8.5-10.1); CHLORIDE 115 mmol/L (98-107); CO2 23 mmol/L (21-32); GLUCOSE,RANDOM 104 mg/dL (74-106); POTASSIUM 3.2 mmol/L (3.5-5.1); SGPT/ALT 20 U/L (12-78); SODIUM 147 mmol/L (136-145)
[2017-06-16 08:54] LABS: ALK PHOS 45 U/L (45-117); BILIRUBIN,TOTAL 0.3 mg/dL (0.2-1.0); SGOT/AST 21 U/L (15-37); TOT PROT 4.4 g/dl (6.4-8.2)
[2017-06-16] MEDS ORDERED: POTASSIUM CHLORIDE ORAL LIQUID 20 MEQ/15 ML PO ONE (09:02)
[2017-06-16 09:25] LABS: MAGNESIUM 1.7 mg/dL (1.8-2.4)
[2017-06-16] MEDS: PARoxetine HCL 20 MG TABLET (FP) PO SCH (10:09)
[2017-06-16] MEDS: NIFEdipine E.R 60 MG TABLET (UD) PO SCH (10:09)
[2017-06-16] MEDS: CEFTRIAXONE 1 G/50 ML PREMIX 50 ML IVPB SCH (10:09)
[2017-06-16] MEDS: MEMANTINE HCL 10 MG TABLET (FP) PO SCH ×2 (10:09→21:04)
--- NOTE | 2017-06-16 15:23 | PN ---
Physical Exam: SUBJECTIVE: Patient seen and examined. Feels well no abdominal pain OBJECTIVE: Vital Signs Period Temp Pulse Resp BP Sys/[place] Pulse Ox Last 24 Hr 97.9 F-98.9 F 84-91 18-19 116-131/51-55 92-95 PE Neuro: alert, awake, cn 2-12intact PULM: CTAB CV: s1 s2 rrr Abd: s nt nd +bs Ext: warm, mild non pitting le edema Laboratory Results - last 24 hr 06/16/17 06/16/17 06/16/17 07:12 07:12 07:12 WBC 6.8 RBC 3.76 Hgb 10.7 D Hct 32.2 L D MCV 85.7 MCH 28.4 MCHC 33.1 RDW 15.0 Plt Count 162 MPV 8.8 Neutrophils % 75.2 Lymphocytes % 15.2 D Monocytes % 9.3 Eosinophils % 0.2 D Basophils % 0.1 Sodium 147 H Potassium 3.2 L Chloride 115 H Carbon Dioxide 23 Anion Gap 9 BUN 26 H Creatinine 1.0 Creat Clearance w eGFR 53.48 POC Glucometer Random Glucose 104 Lactic Acid 1.3 Calcium 7.6 L Magnesium 1.7 L Total Bilirubin 0.3 D AST 21 ALT 20 Alkaline Phosphatase 45 Total Protein 4.4 L Albumin 2.0 L Active Medications Generic Name Dose Route Start Last Admin Trade Name Corwinq PRN Reason Stop Dose Admin Atorvastatin Calcium 10 mg 06/13/17 22:00 06/15/17 21:14 Lipitor - PO 10 mg HS DOUG Administration Heparin Sodium (Porcine) 5,000 unit 06/13/17 22:00 06/16/17 14:45 Heparin - SQ 5,000 unit TID DOUG Administration CEFTRIAXONE 1 G/50 ML PREMIX 50 mls @ 100 mls/hr 06/14/17 10:45 06/16/17 10: 09 Ceftriaxone 1 Gm-D5w Bag IVPB 100 mls/hr DAILY DOUG Administration Metronidazole 500 mg in 100 mls @ 100 mls/hr 06/14/17 10:45 06/16/17 10:09 Flagyl 500mg Premixed Ivpb - IVPB 100 mls/hr Q8H-IV DOUG Administration Insulin Aspart 1 vial 06/14/17 11:22 06/16/17 11:29 Novolog Vial Sliding Scale - SQ 4 units ACHS DOUG Administration Protocol Memantine 10 mg 06/13/17 22:00 06/16/17 10:09 Namenda - PO 10 mg BID DOUG Administration Nifedipine 60 mg 06/14/17 10:00 06/16/17 10:09 Procardia Xl - PO 60 mg DAILY DOUG Administration Paroxetine HCl 20 mg 06/14/17 10:00 06/16/17 10:09 Paxil - PO 20 mg DAILY DOUG Administration Polyethylene Glycol 17 gm 06/15/17 14:00 06/16/17 14:45 Miralax (For Daily Use) - PO 17 gm TID DOUG Administration Assessment: 81 year old female with a pmhx HTN, HLD, DM II, and dementia admitted s/p fall with progressive weakness admitted s/p unwitnessed fall and worsening of weakness. In ER found to have elevated lactic acid, low BP,ST, Fever and STEPHANIE. Plan: 1. Severe sepsis - Resolving - Stop fluids - Ceftriaxone/flagyl per ID 2. STEPHANIE - Resolved - Hold lisinopril 3. Lactic acidosis - Resolved - Hold metformin 4. Abdominal pain - Resolved - Possible colitis vs ischemia (however less likely) - Ceftriaxone/flagyl per ID - Obtain stool cultures, c diff - Can DC home w/ abx and outpt follow up 5. Rectal impaction - Having bowel movements - Continue miralax TID 6. HTN - Stable - Nifedipine 60mg daily - Hold ANCA 7. Prolonged QTC 688 msec - Repeat EKG: NSR 8. Weakness, unwitnessed fall - Work up thus far negative - Can be transferred to SNF tomorrow 9. DM II, borderline uncontrolled - Hold PO meds - ISS, BGM ACHS 10. Abnormal BNP, denies hx of CHF - No chf noted on echo - ECHO normal lv size fxn, rvsft nml, trace mr 11. HDL - Statin 12. Dementia - Namenda - Paxil 13. DVT - Heparin sq Dispo: - SNF tomrrow Visit type - Emergency Visit Emergency Visit: Yes ED Registration Date: 06/14/17 Care time: The patient presented to the Emergency Department on the above date and was hospitalized for further evaluation of their emergent condition. - New Patient This patient is new to me today: No - Critical Care Critical Care patient: No
--- NOTE | 2017-06-16 15:59 | PN ---
Progress Note (short form) - Note Progress Note: no discomfort no complaints soft stools on miralax Vital Signs Period Temp Pulse Resp BP Sys/[place] Pulse Ox Last 24 Hr 97.9 F-99.6 F 84-91 17-19 116-131/50-55 92-95 cor-rrr lungs clear abd soft,nt ext no edema CBC, BMP 06/16/17 07:12 06/16/17 07:12 Microbiology 06/13/17 13:19 Blood - Peripheral Venous Blood Culture - Preliminary NO GROWTH OBTAINED AFTER 72 HOURS, INCUBATION TO CONTINUE FOR 2 DAYS. 06/13/17 12:47 Blood - Peripheral Venous Blood Culture - Preliminary NO GROWTH OBTAINED AFTER 72 HOURS, INCUBATION TO CONTINUE FOR 2 DAYS. 06/14/17 07:10 Urine - Urine Clean Catch Urine Culture - Final NO GROWTH OBTAINED 06/14/17 08:00 Nasopharyngeal Swab Influenza Types A,B Antigen (MARY) - Final 06/14/17 08:00 Nasopharyngeal Swab - Final Current Medications Atorvastatin Calcium (Lipitor -) 10 mg PO HS [facility] Last Admin: 06/15/17 21:14 Dose: 10 mg Heparin Sodium (Porcine) (Heparin -) 5,000 unit SQ TID [facility] Last Admin: 06/16/17 14:45 Dose: 5,000 unit CEFTRIAXONE 1 G/50 ML PREMIX (Ceftriaxone 1 Gm-D5w Bag) 50 mls @ 100 mls/hr IVPB DAILY [facility] Last Admin: 06/16/17 10:09 Dose: 100 mls/hr Metronidazole (Flagyl 500mg Premixed Ivpb -) 500 mg in 100 mls @ 100 mls/hr IVPB Q8H-IV [facility] Last Admin: 06/16/17 10:09 Dose: 100 mls/hr Insulin Aspart (Novolog Vial Sliding Scale -) 1 vial SQ ACHS [facility] PRN Reason: Protocol Last Admin: 06/16/17 11:29 Dose: 4 units Memantine (Namenda -) 10 mg PO BID [facility] Last Admin: 06/16/17 10:09 Dose: 10 mg Nifedipine (Procardia Xl -) 60 mg PO DAILY [facility] Last Admin: 06/16/17 10:09 Dose: 60 mg Paroxetine HCl (Paxil -) 20 mg PO DAILY [facility] Last Admin: 06/16/17 10:09 Dose: 20 mg Polyethylene Glycol (Miralax (For Daily Use) -) 17 gm PO TID [facility] Last Admin: 06/16/17 14:45 Dose: 17 gm imp/reccd s/p fall ?colitis- isolated fever with lactic acid elevation STEPHANIE dementia- poor historian doing well, has completed 3 days of antibiotics, will switch to po flagyl d/c miralax please call back if needed, d/w hospitalist renal function improving Problem List - Problems (1) Fever Code(s): R50.9 - FEVER, UNSPECIFIED (2) Lactic acidosis Code(s): E87.2 - ACIDOSIS (3) STEPHANIE (acute kidney injury) Code(s): N17.9 - ACUTE KIDNEY FAILURE, UNSPECIFIED (4) Status post fall Code(s): Z91.81 - HISTORY OF FALLING (5) Colitis Code(s): K52.9 - NONINFECTIVE GASTROENTERITIS AND COLITIS, UNSPECIFIED (6) Dementia Code(s): F03.90 - UNSPECIFIED DEMENTIA WITHOUT BEHAVIORAL DISTURBANCE
[2017-06-16] MEDS: ATORVASTATIN CA 10 MG TABLET (FP) PO SCH (21:04)
[2017-06-16] MEDS: metroNIDAZOLE 250 MG TABLET PO SCH (21:04)
[2017-06-17] MEDS: INSULIN SLIDING SCALE (NOVOLOG) 1 VIAL SQ SCH ×2 (06:17→11:35)
[2017-06-17] MEDS: metroNIDAZOLE 250 MG TABLET PO SCH ×2 (06:17→14:43)
[2017-06-17] MEDS: HEPARIN NA (PORCINE) 5,000 UNITS/ML 1ML VIAL SQ SCH ×2 (06:17→14:43)
[2017-06-17 08:59] LABS: HEMATOCRIT 36.8 % (32.4-45.2); HEMOGLOBIN 11.9 GM/dL (10.7-15.3); MCH 27.9 pg (25.7-33.7); MCHC 32.5 g/dl (32.0-36.0); MEAN CELL VOLUME 85.8 fl (80-96); MEAN PLT VOLUME 8.7 fl (7.5-11.1); PLATELET COUNT 208 K/MM3 (134-434); RBC 4.28 M/mm3 (3.60-5.2); WHITE BLOOD COUNT 6.5 K/mm3 (4.0-10.0)
[2017-06-17 09:52] LABS: ALBUMIN 2.4 g/dl (3.4-5.0); BLOOD UREA NITROGEN 21 mg/dL (7-18); CHLORIDE 115 mmol/L (98-107); POTASSIUM 3.6 mmol/L (3.5-5.1); SODIUM 147 mmol/L (136-145)
[2017-06-17 09:59] LABS: ALK PHOS 75 U/L (45-117); ANION GAP 7 (8-16); BILIRUBIN,TOTAL 0.5 mg/dL (0.2-1.0); CO2 25 mmol/L (21-32); CREATININE 0.9 mg/dL (0.55-1.02); GLUCOSE,RANDOM 125 mg/dL (74-106); SGOT/AST 63 U/L (15-37); SGPT/ALT 42 U/L (12-78)
[2017-06-17] MEDS: NIFEdipine E.R 60 MG TABLET (UD) PO SCH (10:19)
[2017-06-17] MEDS: PARoxetine HCL 20 MG TABLET (FP) PO SCH (10:19)
[2017-06-17] MEDS: MEMANTINE HCL 10 MG TABLET (FP) PO SCH (10:19)
[2017-06-17 12:06] LABS: ANISOCYTOSIS 1+; MACROCYTOSIS 0; OVALOCYTE 1+; PLATELET ESTIMATE NORMAL
--- NOTE | 2017-06-17 13:35 | DS ---
Physical Exam: SUBJECTIVE: Patient seen and examined OBJECTIVE: Vital Signs Period Temp Pulse Resp BP Sys/[place] Pulse Ox Last 24 Hr 97.6 F-99.6 F 90-98 17-20 125-144/50-71 96 PHYSICAL EXAM GENERAL: The patient is awake, alert, and fully oriented, in no acute distress. HEAD: Normal with no signs of trauma. EYES: PERRL, extraocular movements intact, sclera anicteric, conjunctiva clear. ENT: Ears normal, nares patent, oropharynx clear without exudates, moist mucous membranes. NECK: Trachea midline, full range of motion, supple. LUNGS: Breath sounds equal, clear to auscultation bilaterally, no wheezes, no crackles, no accessory muscle use. HEART: Regular rate and rhythm, S1, S2 without murmur, rub or gallop. ABDOMEN: Soft, nontender, nondistended, normoactive bowel sounds, no guarding, no rebound, no hepatosplenomegaly, no masses. EXTREMITIES: 2+ pulses, warm, well-perfused, no edema. NEUROLOGICAL: Cranial nerves II through XII grossly intact. Normal speech, gait not observed. PSYCH: Normal mood, normal affect. SKIN: Warm, dry, normal turgor, no rashes or lesions noted. LABS Laboratory Results - last 24 hr 06/16/17 06/16/17 06/17/17 16:51 20:46 06:09 WBC RBC Hgb Hct MCV MCH MCHC RDW Plt Count MPV Neutrophils % Neutrophils % (Manual) Band Neutrophils % Lymphocytes % Lymphocytes % (Manual) Monocytes % (Manual) Eosinophils % (Manual) Basophils % (Manual) Myelocytes % (Man) Metamyelocytes Hypochromia Platelet Estimate Polychromasia Poikilocytosis Anisocytosis Microcytosis Macrocytosis Ovalocytes Sodium Potassium Chloride Carbon Dioxide Anion Gap BUN Creatinine Creat Clearance w eGFR POC Glucometer 105 201 139 Random Glucose Calcium Total Bilirubin AST ALT Alkaline Phosphatase Total Protein Albumin 06/17/17 06/17/17 06/17/17 08:40 08:40 11:33 WBC 6.5 RBC 4.28 Hgb 11.9 D Hct 36.8 MCV 85.8 MCH 27.9 MCHC 32.5 RDW 15.0 Plt Count 208 D MPV 8.7 Neutrophils % No Result Required. Neutrophils % (Manual) 57.1 Band Neutrophils % 3.1 Lymphocytes % No Result Required. Lymphocytes % (Manual) 28.6 Monocytes % (Manual) 9 Eosinophils % (Manual) 0.0 Basophils % (Manual) 0.0 Myelocytes % (Man) 0 Metamyelocytes 0 Hypochromia 0 Platelet Estimate Normal Polychromasia 0 Poikilocytosis 1+ Anisocytosis 1+ Microcytosis 0 Macrocytosis 0 Ovalocytes 1+ Sodium 147 H Potassium 3.6 Chloride 115 H Carbon Dioxide 25 Anion Gap 7 L BUN 21 H Creatinine 0.9 Creat Clearance w eGFR > 60 POC Glucometer 172 Random Glucose 125 H Calcium 8.0 L Total Bilirubin 0.5 D AST 63 H ALT 42 Alkaline Phosphatase 75 Total Protein 5.0 L Albumin 2.4 L HOSPITAL COURSE: Date of Admission:06/14/17 Date of Discharge: 06/17/17 Discharge Summary Reason For Visit: ACUTE RENAL FAILURE Current Active Problems STEPHANIE (acute kidney injury) (Acute) Acute renal failure (Acute) Colitis (Acute) Dementia (Acute) Fever (Acute) Lactic acidosis (Acute) Prolonged QT interval (Acute) Status post fall (Acute) Condition: Improved - Instructions Diet, Activity, Other Instructions: Mrs Gonzalez: Please continue the antibiotics as prescribed: Flagyl 500mg TID for 7 more days Please continue all other medications as outlined in your discharge instructions. Please see your new primary care physician within 1 week after discharge. It is important, that you follow up for repeat blood work. Please call me with any concerns: [phone] [facility], [place] Medical Referrals: Miguel Ángel Pedraza MD [Staff Physician] - 1 Week STAFF,NOT ON [Primary Care Provider] - Pranav Lynn MD [Staff Physician] - Whitley Olvera MD [Staff Physician] - Joaquin Cook MD [Staff Physician] - Disposition: LONG TERM FACILITY - Home Medications Comprehensive Discharge Medication List: Ambulatory Orders Lisinopril [Prinivil] 20 mg PO DAILY 06/13/17 Memantine HCl [Namenda -] 10 mg PO BID 06/13/17 Metformin HCl [Metformin HCl ER] 500 mg PO DAILY 06/13/17 Nifedipine [Procardia Xl] 60 mg PO DAILY 06/13/17 Paroxetine HCl 20 mg PO DAILY 06/13/17 Rivastigmine 13.3 mg SUBD DAILY 06/13/17 Simvastatin 20 mg PO HS 06/13/17
--- NOTE | 2017-06-17 14:31 | PN ---
Progress Note, Physician History of Present Illness: Has daily BMs. Stool test results noted. - Current Medication List Current Medications: Active Medications Atorvastatin Calcium (Lipitor -) 10 mg PO HS [facility] Last Admin: 06/16/17 21:04 Dose: 10 mg Heparin Sodium (Porcine) (Heparin -) 5,000 unit SQ TID [facility] Last Admin: 06/17/17 06:17 Dose: 5,000 unit Insulin Aspart (Novolog Vial Sliding Scale -) 1 vial SQ ACHS [facility] PRN Reason: Protocol Last Admin: 06/17/17 11:35 Dose: 2 units Memantine (Namenda -) 10 mg PO BID [facility] Last Admin: 06/17/17 10:19 Dose: 10 mg Metronidazole (Flagyl -) 500 mg PO TID [facility] Last Admin: 06/17/17 06:17 Dose: 500 mg Nifedipine (Procardia Xl -) 60 mg PO DAILY [facility] Last Admin: 06/17/17 10:19 Dose: 60 mg Paroxetine HCl (Paxil -) 20 mg PO DAILY [facility] Last Admin: 06/17/17 10:19 Dose: 20 mg - Objective Vital Signs: Vital Signs Temperature 98.5 F 06/17/17 06:00 Pulse Rate 94 H 06/17/17 06:00 Respiratory Rate 20 06/17/17 06:00 Blood Pressure 144/67 06/17/17 06:00 O2 Sat by Pulse Oximetry (%) 96 06/17/17 10:19 Constitutional: Yes: Well Nourished, No Distress, Calm Gastrointestinal: Yes: Normal Bowel Sounds, Soft. No: Rectal Bleeding, Tenderness, Vomiting Labs: CBC, BMP 06/17/17 08:40 06/17/17 08:40 INR, PTT INR 1.03 (0.82-1.09) 06/13/17 13:15 CBCD WBC 6.5 K/mm3 (4.0-10.0) 06/17/17 08:40 RBC 4.28 M/mm3 (3.60-5.2) 06/17/17 08:40 Hgb 11.9 GM/dL (10.7-15.3) D 06/17/17 08:40 Hct 36.8 % (32.4-45.2) 06/17/17 08:40 MCV 85.8 fl (80-96) 06/17/17 08:40 MCHC 32.5 g/dl (32.0-36.0) 06/17/17 08:40 RDW 15.0 % (11.6-15.6) 06/17/17 08:40 Plt Count 208 K/MM3 (134-434) D 06/17/17 08:40 MPV 8.7 fl (7.5-11.1) 06/17/17 08:40 CMP Sodium 147 mmol/L (136-145) H 06/17/17 08:40 Potassium 3.6 mmol/L (3.5-5.1) 06/17/17 08:40 Chloride 115 mmol/L (98-107) H 06/17/17 08:40 Carbon Dioxide 25 mmol/L (21-32) 06/17/17 08:40 Anion Gap 7 (8-16) L 06/17/17 08:40 BUN 21 mg/dL (7-18) H 06/17/17 08:40 Creatinine 0.9 mg/dL (0.55-1.02) 06/17/17 08:40 Creat Clearance w eGFR > 60 (>60) 06/17/17 08:40 Calcium 8.0 mg/dL (8.5-10.1) L 06/17/17 08:40 Total Bilirubin 0.5 mg/dL (0.2-1.0) D 06/17/17 08:40 AST 63 U/L (15-37) H 06/17/17 08:40 ALT 42 U/L (12-78) 06/17/17 08:40 Alkaline Phosphatase 75 U/L (45-117) 06/17/17 08:40 Total Protein 5.0 g/dl (6.4-8.2) L 06/17/17 08:40 Albumin 2.4 g/dl (3.4-5.0) L 06/17/17 08:40 Problem List - Problems (1) Colitis Code(s): K52.9 - NONINFECTIVE GASTROENTERITIS AND COLITIS, UNSPECIFIED Assessment/Plan Continue current care
[2017-06-17 15:10] VITALS: BP 123/86; PULSE 83; TEMP 98.4
--- NOTE | 2017-06-18 13:32 | EKG ---
Test Reason : Blood Pressure : / mmHG Vent. Rate : 099 BPM Atrial Rate : 099 BPM P-R Int : 156 ms QRS Dur : 088 ms QT Int : 346 ms P-R-T Axes : 060 -40 083 degrees QTc Int : 444 ms SINUS RHYTHM WITH PREMATURE ATRIAL COMPLEXES LEFT AXIS DEVIATION ANTERIOR INFARCT (CITED ON OR BEFORE 13-JUN-2017) ABNORMAL ECG Confirmed by MD SHABANA, AMAYA ([id number]) on 06/18/2017 1:32:29 PM Referred By: Confirmed By:AMAYA DONALD MD
== END 2017-06-17 16:45 | DRG 872 ==
LOC: JER 11:36 → INTOOBSV 15:51 → JERBED 15:51 → OBSVTOIN 06-14 13:15 → J5S 06-14 15:58
PROVIDERS: ADMIT Internal Medicine; ATTEND Nurse Practitioner Family
DX: A41.9 Sepsis, unspecified organism (principal); N17.9 Acute kidney failure, unspecified; E87.2 Acidosis; K56.49 Other impaction of intestine; I45.81 Long QT syndrome; I10 Essential (primary) hypertension; E11.9 Type 2 diabetes mellitus without complications; E78.5 Hyperlipidemia, unspecified; R62.7 Adult failure to thrive; E11.65 Type 2 diabetes mellitus with hyperglycemia; K52.9 Noninfective gastroenteritis and colitis, unspecified; F03.90 Unspecified dementia, unspecified severity, without behavioral disturbance, psychotic disturbance, mood disturbance, and anxiety; R65.20 Severe sepsis without septic shock; R10.9 Unspecified abdominal pain; E87.5 Hyperkalemia; Z79.84 Long term (current) use of oral hypoglycemic drugs
CPT/HCPCS: 36415; 70450-TC; 71045-TC; 71250-TC; 74176-TC; 80048; 80053; 81003; 82306; 82550; 82607; 82803; 82962; 83036; 83605; 83690; 83735; 83880; 84100; 84443; 84484; 85025; 85610; 85730; 86850; 86900; 86901; 87040; 87045; 87046; 87086; 87324; 87449; 87804; 93005; 93010; 93306-TC; 97116-GP; 97161-GP; 99285-25; G0378; J1644

== ENCOUNTER 2018-06-27 08:21 | Day surgery (SDC) | payer OTHER, BC ==
[2018-06-24 16:11] VITALS: BMI 18.3
[2018-06-27 10:35] VITALS: TEMP 97
[2018-06-27 11:59] VITALS: BP 153/61; PULSE 56
--- NOTE | 2018-06-28 17:13 | PATH ---
Surgical Pathology Report Patient Name: NHI RAMIREZ [facility]. Rec. #: [id number] /Age/Gender: 1935 (Age: 82) / F Account: [id number] Location: U-ENDOSCOPY Taken: 06/27/2018 Received: 06/27/2018 Reported: 06/28/2018 Physicians: Edgar Arreola M.D. Specimen(s) Received A: BX PORTION OF DUODENUM AND DUODENUM BULB B: BX ANTRUM C: POLYP SIGMOID D: COLON POLYP AND CECAL POLYP E: TRANSVERSE POLYPS F: DESCENDING COLON POLYPS Clinical History Weight loss, colon screening Postoperative diagnosis: Gastritis, colon polyps, diverticulosis, large hemorrhoids Final Diagnosis A. 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 B. STOMACH, ANTRUM, BIOPSY: GASTRIC ANTRAL MUCOSA WITH MILD CHRONIC GASTRITIS. IMMUNOHISTOCHEMICAL STAIN FOR H. PYLORI IS NEGATIVE. C. SIGMOID COLON, POLYP, POLYPECTOMY: TUBULAR ADENOMA. D. CECAL AND RIGHT COLON, POLYP, POLYPECTOMY: TUBULAR ADENOMA(S). E. TRANSVERSE COLON, POLYPS, POLYPECTOMY: TUBULAR ADENOMA(S). HYPERPLASTIC POLYP(S). F. DESCENDING COLON, POLYPS, POLYPECTOMY: HYPERPLASTIC POLYP(S). Electronically Signed Jody Ba M.D. Gross Description A. Received in formalin, labeled "biopsy second portion of duodenum and duodenal bulb" are 3 kay, irregular portions of soft tissue ranging from 0.3-0.5 cm. in greatest dimension. The specimens are submitted in toto in one cassette. B. Received in formalin, labeled "biopsy antrum" are 3 kay, irregular portions of soft tissue ranging from 0.3-0.5 cm. in greatest dimension. The specimens are submitted in toto in one cassette. C. Received in formalin, labeled "sigmoid polyp" is a kay, polypoid portion of soft tissue measuring 0.6 cm. in greatest dimension. The specimen is submitted in toto in one cassette. D. Received in formalin labeled "right colon polyps and cecal polyp," is a 1.0 x 0.9 x 0.2 cm aggregate of kay soft tissue fragments. The formalin is filtered and the specimen is entirely submitted in one cassette. E. Received in formalin labeled "polyps transverse colon," is a 0.8 x 0.7 x 0.2 cm aggregate of kay soft tissue fragments. The formalin is filtered and the specimen is entirely submitted in one cassette. F. Received in formalin, labeled "polyps descending colon" are 2 kay, irregular portions of soft tissue measuring 0.4 and 0.6 cm. in greatest dimension. The specimens are submitted in toto in one cassette. 06/27/2018 [facility]06/27/2018
== END 2018-06-27 11:44 | disposition home or self-care (01) ==
LOC: JASU-ENDO 08:21
PROVIDERS: ATTEND Internal Medicine Gastroenterology
PROC: 0DBL8ZX Excision of Transverse Colon, Via Natural or Artificial Opening Endoscopic, Diagnostic (ICD-10-PCS; 2018-06-27)
PROC: 0DBN8ZX Excision of Sigmoid Colon, Via Natural or Artificial Opening Endoscopic, Diagnostic (ICD-10-PCS; 2018-06-27)
PROC: 0DBM8ZX Excision of Descending Colon, Via Natural or Artificial Opening Endoscopic, Diagnostic (ICD-10-PCS; 2018-06-27)
PROC: 0DBH8ZX Excision of Cecum, Via Natural or Artificial Opening Endoscopic, Diagnostic (ICD-10-PCS; 2018-06-27)
PROC: 0DB68ZX Excision of Stomach, Via Natural or Artificial Opening Endoscopic, Diagnostic (ICD-10-PCS; 2018-06-27)
PROC: 0DBK8ZX Excision of Ascending Colon, Via Natural or Artificial Opening Endoscopic, Diagnostic (ICD-10-PCS; principal; 2018-06-27 09:00)
DX: Z12.11 Encounter for screening for malignant neoplasm of colon (principal); R63.4 Abnormal weight loss; D12.2 Benign neoplasm of ascending colon; D12.0 Benign neoplasm of cecum; D12.4 Benign neoplasm of descending colon; D12.5 Benign neoplasm of sigmoid colon; D12.3 Benign neoplasm of transverse colon; K57.30 Diverticulosis of large intestine without perforation or abscess without bleeding; K64.8 Other hemorrhoids; K29.40 Chronic atrophic gastritis without bleeding; K44.9 Diaphragmatic hernia without obstruction or gangrene
CPT/HCPCS: 82962; 88305-TC; 88342-TC